=== PATIENT | male | born 1965 | race Two or more races ===

== ENCOUNTER 2019-03-19 12:47 | Inpatient (IN) | payer BC ==
[~2019-03-19] VITALS: Ht 170.2 cm; Wt 82.1 kg
[2019-03-19] MEDS ORDERED: METF-414 PO (12:57)
[2019-03-19] MEDS ORDERED: insulin (12:57)
[2019-03-19] MEDS ORDERED: ACETAMINOPHEN 325MG TABLET PO STA (13:01)
[2019-03-19] MEDS ORDERED: SODIUM CHLORIDE 0.9% 1000ML BAG (SEPSIS BOLUS) IV ONE (13:15)
[2019-03-19] MEDS ORDERED: PIPERACILLIN/TAZ 3.375G PREMIX 50 ML IV ONE (13:15)
[2019-03-19] MEDS ORDERED: ONDANSETRON HCL 4MG/2ML INJ IV ONE (13:30)
[2019-03-19 14:08] LABS: HEMATOCRIT. 56.3 % (42.0-52.0); HEMOGLOBIN. 19.1 g/dL (14.0-18.0); MEAN CORPUSCULAR HEMOGLOBIN 32.6 pg (28.0-32.0); MEAN CORPUSCULAR VOLUME 95.9 fL (80.0-94.0); MEAN PLATELET VOLUME 9.6 fl (7.4-10.4); PLATELET 164 x1000/uL (130-400); RED BLOOD CELL COUNT 5.87 mill/uL (4.7-6.1); RED CELL DISTRIBUTION WIDTH 12.4 % (11.6-14.6)
[2019-03-19 14:15] LABS: CHLORIDE 105 mEq/L (98-107)
[2019-03-19 14:39] LABS: PROTHROMBIN TIME 10.1 sec (9.6-11.0)
[2019-03-19 14:40] LABS: PLATELET ESTIMATE NORMAL
[2019-03-19 14:53] LABS: CLARITY URINE CLEAR (CLEAR); COLOR URINE YELLOW (YELLOW); KETONES URINE 3+ (NEGATIVE); LEUKOCYTE ESTERASE URINE NEGATIVE (NEGATIVE); NITRITE URINE NEGATIVE (NEGATIVE); OCCULT BLOOD URINE NEGATIVE (NEGATIVE); PH URINE 7.5 (4.5-8.0); PROTEIN URINE NEGATIVE (NEGATIVE); SPECIFIC GRAVITY URINE 1.032 (1.005-1.030)
[2019-03-19 15:12] LABS: *BENZODIAZEPINES SCREEN URINE NEGATIVE (NEGATIVE); *COCAINE SCREEN URINE PRESUMTIVE POSITIVE (NEGATIVE); METHADONE URINE SCREEN NEGATIVE (NEGATIVE); OPIATES URINE SCREEN NEGATIVE (NEGATIVE)
[2019-03-19 15:13] LABS: CANNABINOID URINE SCREEN NEGATIVE (NEGATIVE); PHENCYCLIDINE URINE SCREEN NEGATIVE (NEGATIVE)
[2019-03-19 15:16] LABS: *AMPHETAMINES SCREEN URINE NEGATIVE (NEGATIVE)
[2019-03-19 15:17] LABS: *BARBITURATES SCREEN URINE NEGATIVE (NEGATIVE)
[2019-03-19] MEDS ORDERED: BENZONATATE 100MG CAPSULE PO PRN (18:15)
[2019-03-19] MEDS ORDERED: CLONIDINE 0.1MG TABLET PO PRN (18:15)
[2019-03-19] MEDS ORDERED: ACETAMINOPHEN 325MG TABLET PO PRN (18:15)
[2019-03-19] MEDS ORDERED: ONDANSETRON HCL 4MG/2ML INJ IV PRN (18:15)
[2019-03-19] MEDS ORDERED: DEXTROSE 50% WATER 50ML SYRINGE IV PRN (18:15)
[2019-03-19 20:40] VITALS: BP 120/74
[2019-03-19] MEDS: BLOOD SUGAR DIAGNOSTIC STRIP TEST SCH (21:00)
[2019-03-19] MEDS ORDERED: GABA-531 MT (21:16)
[2019-03-19] MEDS ORDERED: EMPA25TA MT (21:16)
[2019-03-19] MEDS ORDERED: FISH1CAP34 MT (21:16)
[2019-03-19] MEDS ORDERED: LISI-186 MT (21:16)
[2019-03-19] MEDS ORDERED: METF-416 MT (21:16)
[2019-03-19] MEDS ORDERED: SITA100T11 MT (21:16)
[2019-03-19] MEDS ORDERED: ASPI-1497 MT (21:16)
[2019-03-19] MEDS ORDERED: VANCOMYCIN 1,750 MG in DEXT 5% WATER 250 ML IV NR (22:00)
[2019-03-19] MEDS: INSULIN LISPRO 100 UNITS/ML SUBCUT SCH (22:02)
[2019-03-19] MEDS: SODIUM CHLORIDE 0.9% 1,000 ML IV SCH (22:03)
[2019-03-19] MEDS ORDERED: HYDROCODONE/ACETAMINOPHEN 5/325MG TABLET PO PRN (22:15)
[2019-03-19] MEDS: GABAPENTIN 300MG CAPSULE PO SCH (22:34)
[2019-03-20] VITALS: BP 102/72
[2019-03-20] MEDS: PIPERACILLIN/TAZOBACTAM 3.375 G in DEXT 5% WATER 100 ML IV SCH ×3 (01:00→12:13)
[2019-03-20 04:00] VITALS: BP 111/69
[2019-03-20] MEDS: BLOOD SUGAR DIAGNOSTIC STRIP TEST SCH ×2 (06:45→12:07)
[2019-03-20] MEDS: VANCOMYCIN 1250MG in DEXTROSE 5% WATER 250ML IV SCH ×2 (06:50→14:00)
[2019-03-20 07:22] LABS: CHLORIDE 108 mEq/L (98-107)
[2019-03-20] MEDS: SODIUM CHLORIDE 0.9% 1,000 ML IV SCH (07:39)
[2019-03-20 07:52] LABS: BASOPHILS % 0.3 % (0.0-2.0); EOSINOPHILS % 1.5 % (0.0-5.0); HEMATOCRIT. 45.5 % (42.0-52.0); HEMOGLOBIN. 15.4 g/dL (14.0-18.0); LYMPHOCYTES % 15.8 % (20.0-50.0); MEAN CORPUSCULAR VOLUME 97.5 fL (80.0-94.0); MEAN PLATELET VOLUME 9.8 fl (7.4-10.4); MONOCYTES % 7.7 % (2.0-8.0); NEUTROPHILS % 74.7 % (40.0-76.0); PLATELET 134 x1000/uL (130-400); RED BLOOD CELL COUNT 4.67 mill/uL (4.7-6.1); RED CELL DISTRIBUTION WIDTH 12.5 % (11.6-14.6)
[2019-03-20 08:00] VITALS: BP 104/68
[2019-03-20] MEDS: GABAPENTIN 300MG CAPSULE PO SCH ×2 (08:28→13:03)
[2019-03-20] MEDS: INSULIN LISPRO 100 UNITS/ML SUBCUT SCH ×2 (08:47→12:18)
[2019-03-20] MEDS ORDERED: FISH OIL/OMEGA-3 FATTY ACIDS 1000MG CAPSULE PO SCH (09:00)
[2019-03-20 12:00] VITALS: BP 122/80
[2019-03-20] MEDS ORDERED: LANTUSUD SUBCUT (12:04)
[2019-03-20] MEDS ORDERED: INSULIN LISPRO 100 UNITS/ML SUBCUT SCH (13:45)
[2019-03-20] MEDS ORDERED: INSULIN GLARGINE UD 100 UNITS/ML SYR SUBCUT NR (14:00)
[2019-03-20 15:34] VITALS: BP 139/86
[2019-03-20] MEDS ORDERED: PIPERACILLIN/TAZOBACTAM 3.375 G in DEXT 5% WATER 100 ML IV SCH (18:00)
[2019-03-20] MEDS ORDERED: INSULIN GLARGINE UD 100 UNITS/ML SYR SUBCUT SCH (22:00)
== END 2019-03-20 16:18 | disposition home or self-care (01) | DRG 872 ==
LOC: ER 12:47 → 6EST 16:43 → EDBEDREQSVC 16:44 → EDBEDREQ 16:44 → ENRESERV 19:19
PROVIDERS: ADMIT Internal Medicine; ATTEND Internal Medicine
DX: A41.89 Other specified sepsis (principal); E11.9 Type 2 diabetes mellitus without complications; I10 Essential (primary) hypertension; K76.0 Fatty (change of) liver, not elsewhere classified; A08.4 Viral intestinal infection, unspecified; Z79.899 Other long term (current) drug therapy; Z79.82 Long term (current) use of aspirin; Z79.4 Long term (current) use of insulin; Z79.84 Long term (current) use of oral hypoglycemic drugs; Z71.51 Drug abuse counseling and surveillance of drug abuser
CPT/HCPCS: 36415; 71045; 74176; 80048; 80053; 80305; 81003; 82962; 83036; 83605; 83880; 84145; 84484; 85025; 87045; 87493; 87804; 93005; 96365; 96366; 96375; 99291; J1815; J2405; J2543; J3370; J7030; J7060

== ENCOUNTER 2020-11-22 11:08 | Emergency (ER) | payer BC ==
[~2020-11-22] VITALS: Ht 167.6 cm; Wt 90.0 kg
[~2020-11-22 11:08] MED LIST: ASPI-1497 MT; EMPA25TA MT; FISH1CAP34 MT; GABA-532 MT; LANTUSUD SUBCUT; LISI-186 MT; METF-414 PO; METF-416 MT; SITA100T11 MT; insulin
[2020-11-22] MEDS ORDERED: SODIUM CHLORIDE 0.9% 1,000 ML IV ONE ×2 (11:30)
[2020-11-22 11:47] LABS: CLARITY URINE CLEAR (CLEAR); COLOR URINE YELLOW (YELLOW); KETONES URINE NEGATIVE (NEGATIVE); LEUKOCYTE ESTERASE URINE NEGATIVE (NEGATIVE); NITRITE URINE NEGATIVE (NEGATIVE); OCCULT BLOOD URINE NEGATIVE (NEGATIVE); PROTEIN URINE NEGATIVE (NEGATIVE); SPECIFIC GRAVITY URINE 1.038 (1.005-1.030); UROBILINOGEN URINE 0.2 E.U./dL (0.2-1.0)
[2020-11-22 12:02] LABS: BASOPHILS % 0.3 % (0.0-2.0); EOSINOPHILS % 1.8 % (0.0-5.0); HEMATOCRIT. 52.8 % (42.0-52.0); HEMOGLOBIN. 17.8 g/dL (14.0-18.0); LYMPHOCYTES % 20.8 % (20.0-50.0); MEAN CORPUSCULAR HEMOGLOBIN 32.1 pg (28.0-32.0); MEAN CORPUSCULAR VOLUME 95.3 fL (80.0-94.0); MEAN PLATELET VOLUME 10.2 fl (7.4-10.4); MONOCYTES % 6.6 % (2.0-8.0); NEUTROPHILS % 70.5 % (40.0-76.0); PLATELET 163 x1000/uL (130-400); RED BLOOD CELL COUNT 5.55 mill/uL (4.7-6.1); RED CELL DISTRIBUTION WIDTH 12.4 % (11.6-14.6)
[2020-11-22 12:06] LABS: CHLORIDE 100 mEq/L (98-107)
[2020-11-22 12:14] LABS: BETA HYDROXYBUTYRATE 0.2 mMol/L (0.0-0.3)
[2020-11-22] MEDS ORDERED: INSULIN REGULAR (HUMULIN R) UD 100 UNITS/ML SYR SUBCUT ONE (12:45)
[2020-11-22] MEDS ORDERED: AZIT250T MT (12:47)
[2020-11-22] MEDS ORDERED: INSULIN REGULAR (HUMULIN R) 300UNITS/3ML VIAL SUBCUT NR (13:00)
[2020-11-22 14:18] VITALS: BP 115/68
== END 2020-11-22 14:30 | disposition home or self-care (01) ==
LOC: ER 11:08
DX: E11.65 Type 2 diabetes mellitus with hyperglycemia (principal); J18.9 Pneumonia, unspecified organism; F17.200 Nicotine dependence, unspecified, uncomplicated; I10 Essential (primary) hypertension; Z20.822 Contact with and (suspected) exposure to COVID-19; Z79.82 Long term (current) use of aspirin; Z79.899 Other long term (current) drug therapy; Z79.4 Long term (current) use of insulin
CPT/HCPCS: 36415; 71045; 80053; 81003; 82010; 82962; 85025; 93005; 96360; 99285; C9803; J7030; U0003; U0005; J1815